=== PATIENT | female | born 1995 | race African-American/Black ===

== ENCOUNTER 2017-10-06 22:27 | Emergency (ER) | payer OTHER ==
[~2017-10-06] VITALS: Ht 154.9 cm; Wt 40.0 kg
[2017-10-07] MEDS ORDERED: IBUPROFEN 600MG TABLET PO ONE (03:00)
[2017-10-07 04:12] VITALS: BP 118/62
== END 2017-10-07 04:13 | disposition left against medical advice (07) ==
LOC: ER 22:27
DX: R07.89 Other chest pain (principal)
CPT/HCPCS: 81025; 93005; 99283